=== PATIENT | female | born 1980 | race Caucasian/White ===

== ENCOUNTER 2016-08-22 11:40 | Emergency (ER) | payer MEDICAID ==
[~2016-08-22] VITALS: Wt 76.0 kg
[~2016-08-22 11:40] MED LIST: PREN1TAB49
--- NOTE | 2016-08-22 12:51 | ERA ---
ER Documentation Chief Complaint Date/Time DATE: 08/22/16 TIME: 12:50 Chief Complaint Dizziness HPI The patient is a 36-year-old female, presenting to the ER because of dizziness 3 days ago while she was driving to [place]. The symptoms went away by itself. She denies any chest pain, palpitation, diaphoresis, pleuritic chest pain, abdominal pain, vomiting, diarrhea, dysuria, polyuria. She does not smoke , drinks socially, has a lot of stress Past medical/surgical history: None ROS All systems reviewed and are negative except as per history of present illness. Medications Home Meds Reported Medications Vits W-Ca,Fe,Fa(<1MG) () 1 Tab Tablet, 1 DAILY 03/23/11 Allergies Allergies: Coded Allergies: No Known Allergy (Verified Allergy, 03/23/11) Uncoded Allergies: N (Allergy, 03/23/11) Physical Exam Vitals Vital Signs Date Time Temp Pulse Resp B/P Pulse Ox O2 Delivery O2 Flow Rate FiO2 08/22/16 11:57 97.5 92 17 120/79 98 Physical Exam Const: No acute distress. Head: Atraumatic. Eyes: Normal Conjunctiva. ENT: Normal External Ears, Nose and Mouth. Neck: Full range of motion. No meningismus. Resp: Clear to auscultation bilaterally. Cardio: Regular rate and rhythm, no murmurs. Abd: Soft, non distended, normal bowel sounds, non tender. Skin: No petechiae or rashes. Back: No midline or flank tenderness. Ext: No cyanosis, or edema. Neur: Awake and alert. No focal deficit Psych: Normal Mood and Affect. Procedures/MDM EKG: Read by emergency physician Rate/Rhythm: Normal Sinus Rhythm 64 beats per min QRS, ST, T-waves: No ST elevation, no T wave inversion Impression: Normal EKG MEDICAL MAKING DECISION: The patient is a 36-year-old female, presenting with dizziness that resolved by itself a few days ago of unclear etiology. The differential diagnoses considered include but are not limited to central causes such as cerebellar infarct, cerebellar hemorrhage, cerebellar tumor, acoustic neuroma, peripheral causes such as benign positional vertigo, labyrinthitis, medication, Meniere's disease. Departure Diagnosis: Primary Impression: Dizziness Condition: Fair Comments I discussed the findings with the patient. I advised the patient to follow-up with the primary physician in about 1-2 days, sooner if needed and return if any concern. PETE IGNACIO MD Aug 22, 2016 12:51
== END 2016-08-22 13:30 | disposition home or self-care (01) ==
LOC: FTE 11:40
DX: R42 Dizziness and giddiness (principal)
CPT/HCPCS: 93005; Z7502

== ENCOUNTER 2017-02-27 15:03 | Emergency (ER) | payer MEDICAID ==
[~2017-02-27] VITALS: Ht 157.5 cm; Wt 75.0 kg
[2017-02-27 15:05] VITALS: Ht 157.5 cm; Wt 75.0 kg
[2017-02-27] MEDS ORDERED: ACETAMINOPHEN 500 MG TAB PO STA (17:46)
[2017-02-27] MEDS: ACETAMINOPHEN 500 MG TAB PO STA ×2 (18:11→18:13)
[2017-02-27 18:21] LABS: BASOPHILS % 0.4 % (0.0-2.0); EOSINOPHILS # 0.3 10^3/ul (0.0-0.5); EOSINOPHILS % 3.5 % (0.0-7.0); HEMATOCRIT 40.4 % (37.0-47.0); LYMPHOCYTES # 2.4 10^3/ul (0.8-2.9); LYMPHOCYTES % 24.6 % (15.0-51.0); MEAN CORPUSCULAR HEMOGLOBIN 28.1 pg (29.0-33.0); MEAN CORPUSCULAR HGB CONC 32.2 g/dl (32.0-37.0); MEAN CORPUSCULAR VOLUME 87.4 fl (82.0-101.0); MEAN PLATELET VOLUME 9.5 fl (7.4-10.4); MONOCYTE # 0.9 10^3/ul (0.3-0.9); MONOCYTES % 9.3 % (0.0-11.0); NEUTROPHILS % 61.9 % (39.0-77.0); PLATELET COUNT 409 10^3/UL (140-415); RED BLOOD COUNT 4.62 10^6/ul (4.20-5.40); WHITE BLOOD COUNT 9.6 10^3/ul (4.8-10.8)
[2017-02-27 18:29] LABS: ADD UMIC YES; UR ASCORBIC ACID NEGATIVE (NEGATIVE); UR BILIRUBIN (Dip) NEGATIVE (NEGATIVE); UR BLOOD (Dip) 3+ mg/dL (NEGATIVE); UR CLARITY SLIGHTLY CLOUDY (CLEAR); UR COLOR YELLOW (YELLOW); UR GLUCOSE (Dip) NEGATIVE (NEGATIVE); UR KETONES (Dip) NEGATIVE (NEGATIVE); UR LEUKOCYTE ESTERASE (Dip) 1+ Leu/ul (NEGATIVE); UR NITRITE (Dip) NEGATIVE (NEGATIVE); UR RBC > 182 /HPF (0-5); UR SPECIFIC GRAVITY (Dip) 1.026 (1.003-1.030); UR TOTAL PROTEIN (Dip) 1+ mg/dl (NEGATIVE); UR UROBILINOGEN (Dip) NEGATIVE (NEGATIVE)
--- NOTE | 2017-02-27 19:07 | ERD ---
ER Documentation Chief Complaint Date/Time DATE: 02/27/17 TIME: 19:02 Chief Complaint vag bleed since yesterday 6 weeks HPI This is a 36-year-old female presents to the emergency department today complaining of some vaginal bleeding and mild abdominal cramping like her menstrual cycle. States that yesterday she took a test that was positive. States she does have some pain with urination. Denies any fevers or chills, nausea or vomiting. She has not taken any medication for the pain. ROS All systems reviewed and are negative except as per history of present illness. Medications Home Meds Reported Medications Vits W-Ca,Fe,Fa(<1MG) () 1 Tab Tablet, 1 DAILY 03/23/11 Allergies Allergies: Coded Allergies: No Known Allergy (Verified Allergy, 03/23/11) Uncoded Allergies: N (Allergy, 03/23/11) PMhx/Soc Medical and Surgical Hx: pt denies Medical Hx, pt denies Surgical Hx Hx Alcohol Use: Yes Hx Substance Use: No Hx Tobacco Use: No Smoking Status: Never smoker Physical Exam Vitals Vital Signs Date Time Temp Pulse Resp B/P Pulse Ox O2 Delivery O2 Flow Rate FiO2 02/27/17 15:05 98.8 81 18 138/88 99 Physical Exam Const: No acute distress Head: Atraumatic Eyes: Normal Conjunctiva ENT: Normal External Ears, Nose and Mouth. Neck: Full range of motion..~ No meningismus. Resp: Clear to auscultation bilaterally Cardio: Regular rate and rhythm, no murmurs Abd: Soft, mild pelvic tenderness , non distended. Normal bowel sounds. No tenderness [place] Skin: No petechiae or rashes Back: No midline or flank tenderness Ext: No cyanosis, or edema Neur: Awake and alert Psych: Normal Mood and Affect Result Diagram: 02/27/170 Results 24 hrs Laboratory Tests Test 02/27/17 18:10 White Blood Count 9.610^3/ul Red Blood Count 4.6210^6/ul Hemoglobin 13.0g/dl Hematocrit 40.4% Mean Corpuscular Volume 87.4fl Mean Corpuscular Hemoglobin 28.1pg Mean Corpuscular Hemoglobin Concent 32.2g/dl Red Cell Distribution Width 14.0% Platelet Count 22983^3/UL Mean Platelet Volume 9.5fl Neutrophils % 61.9% Lymphocytes % 24.6% Monocytes % 9.3% Eosinophils % 3.5% Basophils % 0.4% Nucleated Red Blood Cells % 0.0/100WBC Neutrophils # 6.010^3/ul Lymphocytes # 2.410^3/ul Monocytes # 0.910^3/ul Eosinophils # 0.310^3/ul Basophils # 0.010^3/ul Nucleated Red Blood Cells # 0.010^3/ul Urine Color YELLOW Urine Clarity SLIGHTLY CLOUDY Urine pH 5.0 Urine Specific [place] 1.026 Urine Ketones NEGATIVEmg/dL Urine Nitrite NEGATIVEmg/dL Urine Bilirubin NEGATIVEmg/dL Urine Urobilinogen NEGATIVEmg/dL Urine Leukocyte Esterase 1+[place]/ul Urine Microscopic RBC > 182/HPF Urine Microscopic WBC 20/HPF Urine Hemoglobin 3+mg/dL Urine Glucose NEGATIVEmg/dL Urine Total Protein 1+mg/dl Beta HCG, Quantitative 40.2mIU/ml Current Medications Medications (Trade) Dose Ordered Sig/Yadira Route PRN Reason Start Time Stop Time Status Last Admin Dose Admin Acetaminophen (Tylenol Tab) 500 mg ONCE STAT PO 02/27/17 17:46 02/27/17 18:11 DC 02/27/17 18:09 Acetaminophen (Tylenol Tab) 500 mg ONCE STAT PO 02/27/17 17:55 02/27/17 17:57 DC DIAGNOSTIC IMAGING REPORT Patient: JULIO WATTS : 1980 Age: 36 Sex: F MR #: [id number] DOS: 02/27/17 0000 Ordering MD: LEIDA KOVACS PA-C Location: [facility] Room/Bed: PROCEDURE: OBSTETRICAL ULTRASOUND WITH ENDOVAGINAL IMAGES CLINICAL INDICATION: vaginal bleeding, positive test TECHNIQUE: Multiple sonographic images of the pelvis were obtained utilizing a transabdominal and endovaginal technique. The images were reviewed on a PACS workstation. COMPARISON: None. LMP: 01/15/2017 Gestational age by LMP: 6 weeks, 1 day FINDINGS: The uterus is retroverted and measures 6.9 x 4.2 x 5.4 cm. The endometrium measures 10 mm in thickness. There is no evidence of an intrauterine . There is no evidence of abnormal vascularity in the endometrium. The right ovary measures 2.3 x 1.2 x 1.4 cm. The left ovary measures 2.5 x 1.7 x 2.6 cm. There is normal vascular flow in both ovaries. No significant ovarian lesions are seen. No significant pelvic free fluid is identified. IMPRESSION: Thickening of the endometrium to 10 mm without evidence of an intrauterine . Findings may be due to an early intrauterine although an ectopic cannot be entirely excluded. Short-term follow-up ultrasound and serial Beta HCG measurements are recommended for further evaluation. RPTAT: EE Erick Schuster Physician Date Time Electronically viewed and signed by Erick Schuster Physician on 02/27/2017 19:35 RA/ CC: LEIDA KOVACS PA-C Procedures/MDM This is a 36-year-old female who presents to the emergency department today complaining of vaginal bleeding. Patient states she took a positive test yesterday. Given this I did do a urine test here that was positive.. Given this I did obtain a complete OB workup. Laboratory work shows no elevated white blood cell count. She is not anemic. Platelets are within normal limits. UA shows 1+ leukocyte esterase. 20 microcup white blood cells per Beta quant hCG 40.2 Rh status O+ Ultrasound shows thickening of the endometrium to 10 mm without evidence of intrauterine . Pain is a due to an early intrauterine although an ectopic cannot be entirely excluded. There is no significant pelvic free fluid. There is normal vascular flow in both ovaries. Patient symptoms at this time is consistent with vaginal bleeding in early and urinary tract infection. Other differentials to consider early normal versus early failed versus placenta previa versus subchorionic hemorrhage. Patient is afebrile and otherwise well-appearing. I have low suspicion for ectopic , tubo ovarian abscess, ovarian torsion. I have explained the results to the patient. I have explained to the patient that they need to follow-up in 48 hours for a repeat beta quant. Patient will begin a prescription for Tylenol and Macrobid. At this time the patient is stable for discharge and outpatient management. Patient should follow up with their PCP in the next 1-2 days. They may return to the emergency department sooner for any persistent or worsening of symptoms. Patient understood and agreed with the plan. LEIDA KOVACS PA-C Feb 27, 2017 19:07
--- NOTE | 2017-02-27 19:35 | RADRPT ---
PROCEDURE: OBSTETRICAL ULTRASOUND WITH ENDOVAGINAL IMAGES CLINICAL INDICATION: vaginal bleeding, positive test TECHNIQUE: Multiple sonographic images of the pelvis were obtained utilizing a transabdominal and endovaginal technique. The images were reviewed on a PACS workstation. COMPARISON: None. LMP: 01/15/2017 Gestational age by LMP: 6 weeks, 1 day FINDINGS: The uterus is retroverted and measures 6.9 x 4.2 x 5.4 cm. The endometrium measures 10 mm in thickn ess. There is no evidence of an intrauterine . There is no evidence of abnormal vascularit y in the endometrium. The right ovary measures 2.3 x 1.2 x 1.4 cm. The left ovary measures 2.5 x 1.7 x 2.6 cm. There is no rmal vascular flow in both ovaries. No significant ovarian lesions are seen. No significant pelvic free fluid is identified. IMPRESSION: Thickening of the endometrium to 10 mm without evidence of an intrauterine . Findings ma y be due to an early intrauterine although an ectopic cannot be entirely exclude d. Short-term follow-up ultrasound and serial Beta HCG measurements are recommended for further florian luation. RPTAT: EE Physician Rivka Date Time Electronically viewed and signed by Physician Rivka on 02/27/2017 19:35 /
[2017-02-27] MEDS ORDERED: NITR-58 PO (19:55)
[2017-02-27] MEDS ORDERED: ACET500C5 PO (19:55)
[2017-02-27 20:00] VITALS: BP 121/69; PULSE 72; RESP 18
== END 2017-02-27 20:00 | disposition home or self-care (01) ==
LOC: FTE 15:03
DX: O20.9 Hemorrhage in early pregnancy, unspecified (principal); O23.41 Unspecified infection of urinary tract in pregnancy, first trimester; R10.2 Pelvic and perineal pain; Z3A.01 Less than 8 weeks gestation of pregnancy
CPT/HCPCS: 76801; 76817; 81001; 84702; 85025; 86900; 86901; Z7610